=== PATIENT | male | born 1965 | race Hispanic/Latino ===

== ENCOUNTER 2018-11-06 18:37 | Emergency (ER) | payer MEDICAID ==
[~2018-11-06 18:37] MED LIST: AMAN100C12 PO; AMIT25TA9 PO; APRE30TA2 PO; ASPI-1197 PO; CARB1TAB42 PO; CHOL5POW MC; CICL60SU2 TP; CLOT15CR64 TP; ENTA200 PO; FISH1CAP49 PO; FLUO15CR2 TP; GLYB2.5 PO; LOPE2TAB52 PO; LUBI24CA2 PO; METO-409 PO; MULT-1224 PO; PANT40TA25 PO; RASA1TAB PO; ROPI3TAB5 PO; SIMV40TA59 PO; SULFAD500 PO; VITAMIN D
[2018-11-06 20:04] LABS: BASOPHILS % (AUTO) 0.6 % (0.0-5.0); EOSINOPHILS % (AUTO) 2.2 % (0.0-8.0); LYMPHOCYTES % (AUTO) 14.6 % (21.0-51.0); MEAN CORPUSCULAR HEMOGLOBIN 29.8 pg (27.0-33.0); MEAN CORPUSCULAR VOLUME 90.1 fL (79-99); MONOCYTES % (AUTO) 9.7 % (3.0-13.0); NEUTROPHILS % (AUTO) 72.9 % (40.0-77.0); PLATELET COUNT (AUTO) 184 K/uL (130-400); RED CELL DISTRIBUTION WIDTH 13.4 % (11.0-15.5); WHITE BLOOD COUNT (AUTO) 11.1 K/uL (4.8-10.8)
[2018-11-06 20:14] LABS: CREATININE 0.9 mg/dL (0.5-1.5); POTASSIUM 3.8 mmol/L (3.5-5.1)
[2018-11-06 20:19] LABS: ALBUMIN 3.4 g/dL (3.5-5.0); BILIRUBIN,TOTAL 0.2 mg/dL (0.2-1.0); TOTAL PROTEIN, SERUM 7.3 g/dL (6.0-8.3)
== END 2018-11-06 21:31 | disposition home or self-care (01) ==
LOC: EDH 18:37
DX: J06.9 Acute upper respiratory infection, unspecified (principal); E11.9 Type 2 diabetes mellitus without complications; I10 Essential (primary) hypertension; E78.5 Hyperlipidemia, unspecified; Z98.890 Other specified postprocedural states
CPT/HCPCS: 36415; 71045; 80053; 85025; 87804; 93005

== ENCOUNTER → 2019-03-02 | Outpatient (CLI) | payer MEDICAID ==
[~2019-03-02] VITALS: Ht 162.6 cm; Wt 78.5 kg
[~2019-03-02] MED LIST changes: +REGADENOSON 0.4 MG/5 ML PF SYG IVP SCH
== END | disposition home or self-care (01) ==
LOC: SHCH 08:35
PROVIDERS: ATTEND Internal Medicine Cardiovascular Disease
DX: R00.2 Palpitations (principal); I10 Essential (primary) hypertension; I25.10 Atherosclerotic heart disease of native coronary artery without angina pectoris
CPT/HCPCS: 78452; 93017; 96374; A9500 ×2; J2785

== ENCOUNTER → 2020-11-21 | Outpatient (CLI) | payer MEDICAID ==
[~2020-11-21] MED LIST changes: -PANT40TA25 PO; +PANT40TA54 PO; -REGADENOSON 0.4 MG/5 ML PF SYG IVP SCH
== END ==
LOC: RAH 09:37
PROVIDERS: ATTEND Internal Medicine
DX: M19.072 Primary osteoarthritis, left ankle and foot (principal)
CPT/HCPCS: 73630

== ENCOUNTER → 2021-05-04 | Outpatient (CLI) | payer MEDICAID ==
[~2021-05-04] VITALS: Ht 162.6 cm; Wt 78.9 kg
[~2021-05-04] MED LIST changes: -GLYB2.5 PO; +GLYB2.5T6 PO; +REGADENOSON 0.4 MG/5 ML PF SYG IVP SCH
== END | disposition home or self-care (01) ==
LOC: SHCH 09:11
PROVIDERS: ATTEND Internal Medicine Cardiovascular Disease
DX: R00.2 Palpitations (principal)
CPT/HCPCS: 78452; 93017; 96374; A9500 ×2; J2785

== ENCOUNTER → 2021-07-30 | Outpatient (CLI) | payer MEDICAID ==
[~2021-07-30] MED LIST changes: +IOHEXOL-350 50ML VIAL IV ONE; -REGADENOSON 0.4 MG/5 ML PF SYG IVP SCH
== END | disposition home or self-care (01) ==
LOC: RAH 14:13
PROVIDERS: ATTEND Internal Medicine
DX: I51.7 Cardiomegaly (principal); R93.89 Abnormal findings on diagnostic imaging of other specified body structures; R05 Cough; Z87.891 Personal history of nicotine dependence
CPT/HCPCS: 71260; J3490; Q9967

== ENCOUNTER → 2022-12-20 | Outpatient (CLI) | payer MEDICAID ==
[~2022-12-20] MED LIST changes: -AMAN100C12 PO; +AMAN100C14 PO; -APRE30TA2 PO; +APRE30TA5 PO; -IOHEXOL-350 50ML VIAL IV ONE; +SULF500T75 PO; -SULFAD500 PO
== END | disposition home or self-care (01) ==
LOC: RAH 11:25
PROVIDERS: ATTEND Nurse Practitioner Family
DX: M54.6 Pain in thoracic spine (principal)
CPT/HCPCS: 72070

== ENCOUNTER → 2024-09-27 | Outpatient (CLI) | payer MEDICAID ==
[~2024-09-27] MED LIST changes: +ROPI3TAB21 PO; -ROPI3TAB5 PO
--- NOTE | 2024-09-27 15:10 | HMCIMG ---
EXAM: LUMBAR SPINE 2-3VWS REASON: LOW BACK PAIN, RADICULOPATHY, LUMBAR REGION/WEAKNESS. COMPARISON: None. TECHNIQUE: 3 views of the lumbar spine were obtained. FINDINGS: There is normal appearance of the lumbar vertebral bodies. Disc interspace heights are preserved. Alignment is normal. There are no visible fractures. Soft tissues appear unremarkable. IMPRESSION: 1. Normal lumbar spine.
== END | disposition home or self-care (01) ==
LOC: RAH 11:24
PROVIDERS: ATTEND Nurse Practitioner Family
DX: M54.16 Radiculopathy, lumbar region (principal); R53.1 Weakness; M54.50 Low back pain, unspecified
CPT/HCPCS: 72100

== ENCOUNTER → 2025-03-02 | Outpatient (CLI) | payer MEDICAID ==
[~2025-03-02] MED LIST changes: -LUBI24CA2 PO; +LUBI24CA40 PO
--- NOTE | 2025-03-02 11:41 | HMCIMG ---
CHEST 2VWS HISTORY: Hypertensive heart disease COMPARISON: None FINDINGS: Frontal and lateral projections of the chest were obtained. There is no acute pulmonary infiltrates or failure. The heart is borderline enlarged. No evidence of aortic calcification is seen. Degenerative changes are seen of the thoracolumbar spine. IMPRESSION: 1. No acute pulmonary infiltrates.
== END | disposition home or self-care (01) ==
LOC: RAH 10:40
DX: I11.9 Hypertensive heart disease without heart failure (principal); M47.815 Spondylosis without myelopathy or radiculopathy, thoracolumbar region
CPT/HCPCS: 71046